=== PATIENT | female | born 2000 | race Two or more races ===

== ENCOUNTER 2021-10-21 08:59 | Inpatient (IN) | payer MEDICAID ==
[~2021-10-21] VITALS: Ht 152.4 cm; Wt 77.6 kg
[2021-10-21] VITALS (15 sets, daily range): BP systolic 98–129; BP diastolic 53–83
[2021-10-21] MEDS ORDERED: ceFAZolin 1GM/50ML 50 ML IV ONE (10:30)
[2021-10-21] MEDS ORDERED: LACTATED RINGER'S 2,000 ML IV ONE (10:45)
[2021-10-21 11:00] LABS: Basophils # (auto) 0 10 ^3/uL (0-0.2); Eosinophils # (auto) 0 10 ^3/uL (0-0.8); Eosinophils % (auto) 0.3 % (0.0-7.0); Monocytes # (auto) 0.4 10 ^3/uL (0-1.3); Monocytes % (auto) 6.5 % (0.0-12.0)
[2021-10-21 11:05] LABS: Basophils % (auto) 0.3 % (0.0-2.0); Hematocrit 32.9 % (36.0-46.0); Hemoglobin 10.9 g/dL (12.2-16.2); Lymphocytes # (auto) 1.4 10 ^3/uL (0.4-5.4); Mean Corpuscular Hemoglobin 26.1 pg (28.0-32.0); Mean Corpuscular Volume 78.9 fL (80.0-100.0); Neutrophils # (auto) 3.6 10 ^3/uL (1.6-8.6); Neutrophils % (auto) 66.9 % (37.0-80.0); Nucleated Red Blood Cells % 0.2 %; Red Blood Cells 4.17 10^6/uL (4.0-5.20); Red Cell Distribution Width 15.9 % (11.8-14.3); White Blood Cell 5.5 10^3/uL (4.4-10.8)
[2021-10-21 11:18] LABS: Albumin 2.4 g/dL (3.4-5.0); BUN/Creatinine Ratio 17.1; Calcium 8.3 mg/dL (8.5-10.1); Potassium 3.8 mmol/L (3.5-5.1)
[2021-10-21 11:21] LABS: Urine Bacteria FEW /hpf (None Seen); Urine Blood Negative /uL (Negative); Urine Mucus FEW (None Seen); Urine Specific Gravity 1.031 (1.001-1.035); Urine WBC 5 /hpf (0 - 5)
[2021-10-21 11:23] LABS: Alcohol, Urine < 3.0 mg/dL (0-10); Amphetamine Screen, Urine NEGATIVE (NEGATIVE); Barbiturate Scree,Urine NEGATIVE (NEGATIVE); Benzodiazephine Screen, Urine NEGATIVE (NEGATIVE); Cannabinoid Screen, Urine NEGATIVE (NEGATIVE); Cocaine Screen, Urine NEGATIVE (NEGATIVE); Opiate Scree,Urine NEGATIVE (NEGATIVE); Phencyclidine Screen, Urine NEGATIVE (NEGATIVE)
[2021-10-21 11:31] LABS: Bilirubin, Total 0.4 mg/dL (0.2-1.0); Total Protein 6.4 g/dL (6.4-8.2)
[2021-10-21 11:35] LABS: INR 0.94 (0.9-1.15); Partial Thromboplastin Time 25.6 sec (23.6-33.0)
[2021-10-21] MEDS ORDERED: fentaNYL CITRATE 100 MCG/2 ML VL ONE (11:58)
[2021-10-21] MEDS ORDERED: MORPHINE SULF PF 5 MG/10 ML VIAL ONE (11:59)
[2021-10-21] MEDS ORDERED: IBUP800T27 PO (13:12)
[2021-10-21] MEDS ORDERED: DOCU-94 PO (13:12)
[2021-10-21] MEDS ORDERED: HYDR-4902 PO (13:12)
[2021-10-21] MEDS ORDERED: ceFAZolin 1GM/50ML 50 ML IV SCH (13:15)
[2021-10-21] MEDS ORDERED: ONDANSETRON HCL 4 MG/2 ML VIAL IV PRN ×2 (13:15→13:45)
[2021-10-21] MEDS ORDERED: LACT. RINGERS/OXYTOCIN 20UNITS 1,000 ML IV ONE (13:15)
[2021-10-21] MEDS ORDERED: HYDROmorphone HCL 2 MG/ML VL/or syr IV PRN (13:45)
[2021-10-21] MEDS ORDERED: NALBUPHINE HCL 10 MG/1ml INJECTION SUBCUT ONE (13:45)
[2021-10-21] MEDS ORDERED: NALOXONE HCL 0.4 MG/ML VIAL IV PRN (13:45)
[2021-10-21] MEDS: LACTATED RINGER'S 1,000 ML IV SCH ×2 (14:59→18:30)
[2021-10-21] MEDS ORDERED: ACETAMINOPHEN IV 1000 MG/100ML (10MG/ML) IV PRN (17:15)
[2021-10-21] MEDS: ceFAZolin 1GM/50ML 50 ML IV SCH (19:54)
[2021-10-21 21:38] LABS: Basophils # (auto) 0 10 ^3/uL (0-0.2); Basophils % (auto) 0.3 % (0.0-2.0); Eosinophils # (auto) 0 10 ^3/uL (0-0.8); Lymphocytes # (auto) 1.5 10 ^3/uL (0.4-5.4); Monocytes # (auto) 0.5 10 ^3/uL (0-1.3); White Blood Cell 9.4 10^3/uL (4.4-10.8)
[2021-10-21 21:39] LABS: Eosinophils % (auto) 0.1 % (0.0-7.0); Lymphocytes % (auto) 16.1 % (10.0-50.0); Mean Corpuscular Hemoglobin 25.4 pg (28.0-32.0); Mean Corpuscular Hgb Conc. 32.4 g/dL (32.0-36.0); Mean Corpuscular Volume 78.2 fL (80.0-100.0); Neutrophils # (auto) 7.3 10 ^3/uL (1.6-8.6); Neutrophils % (auto) 78.5 % (37.0-80.0); Red Blood Cells 4.34 10^6/uL (4.0-5.20)
[2021-10-22] VITALS (15 sets, daily range): BP systolic 102–118; BP diastolic 60–80
[2021-10-22] MEDS: LACTATED RINGER'S 1,000 ML IV SCH ×2 (02:30→10:30)
[2021-10-22] MEDS: ceFAZolin 1GM/50ML 50 ML IV SCH ×2 (03:48→12:04)
[2021-10-22] MEDS ORDERED: BISACODYL 10 MG RECT SUPP PR PRN (06:15)
[2021-10-22] MEDS ORDERED: IBUPROFEN 800 MG TAB PO PRN (06:15)
[2021-10-22] MEDS ORDERED: HYDROcodone-ACET 5/325MG TAB PO PRN (06:15)
[2021-10-22] MEDS: HYDROcodone-ACET 5/325MG TAB PO PRN ×2 (06:52→15:30)
[2021-10-22 08:52] LABS: Basophils # (auto) 0 10 ^3/uL (0-0.2); Eosinophils # (auto) 0 10 ^3/uL (0-0.8); Eosinophils % (auto) 0.1 % (0.0-7.0); Hemoglobin 10.5 g/dL (12.2-16.2); Lymphocytes # (auto) 1.3 10 ^3/uL (0.4-5.4); Mean Corpuscular Hemoglobin 25.6 pg (28.0-32.0); Monocytes # (auto) 0.4 10 ^3/uL (0-1.3); Neutrophils # (auto) 5.9 10 ^3/uL (1.6-8.6); Red Blood Cells 4.11 10^6/uL (4.0-5.20); White Blood Cell 7.7 10^3/uL (4.4-10.8)
[2021-10-22 08:54] LABS: Basophils % (auto) 0.3 % (0.0-2.0); Hematocrit 32.3 % (36.0-46.0); Lymphocytes % (auto) 17.4 % (10.0-50.0); Mean Corpuscular Hgb Conc. 32.6 g/dL (32.0-36.0); Mean Corpuscular Volume 78.4 fL (80.0-100.0); Monocytes % (auto) 5.1 % (0.0-12.0); Neutrophils % (auto) 77.1 % (37.0-80.0); Red Cell Distribution Width 16.2 % (11.8-14.3)
[2021-10-22] MEDS: DOCUSATE SOD 100 MG CAP PO SCH ×2 (10:04→22:14)
[2021-10-22] MEDS: DOCUSATE CALCIUM 240 MG CAP PO SCH (10:04)
[2021-10-22] MEDS: SIMETHICONE 80 MG CHEWABLE TABLET PO SCH ×3 (12:00→22:14)
[2021-10-23 03:30] VITALS: BP 117/70
[2021-10-23] MEDS: SIMETHICONE 80 MG CHEWABLE TABLET PO SCH (05:57)
[2021-10-23 07:15] VITALS: BP 111/76
[2021-10-23] MEDS: DOCUSATE SOD 100 MG CAP PO SCH (09:46)
[2021-10-23] MEDS: DOCUSATE CALCIUM 240 MG CAP PO SCH (09:46)
[2021-10-23 11:20] VITALS: BP 119/76
[2021-10-24 05:06] LABS: RPR Non Reactive (Non Reactive)
== END 2021-10-23 14:21 | disposition home or self-care (01) | DRG 540 ==
LOC: LDRP 08:59 → OBSVTOIN 10:20 → LDRP 10:22
PROVIDERS: ADMIT Obstetrics & Gynecology; ATTEND Obstetrics & Gynecology
PROC: 10D00Z1 Extraction of Products of Conception, Low, Open Approach (ICD-10-PCS; principal; 2021-10-21 12:17)
DX: O32.1XX0 Maternal care for breech presentation, not applicable or unspecified (principal); Z20.822 Contact with and (suspected) exposure to COVID-19; Z37.0 Single live birth; Z3A.38 38 weeks gestation of pregnancy
CPT/HCPCS: 36415; 59025; 76818; 80053; 80307; 81001; 81002; 85025; 85610; 85730; 86592; 86850; 86900; 86901; 94760; 94762; 96360; 96361; 96365; 96366; G0378; J0131; J0690

== ENCOUNTER 2021-12-15 21:40 | Emergency (ER) | payer MEDICAID ==
[~2021-12-15] VITALS: Ht 149.9 cm; Wt 68.2 kg
[~2021-12-15 21:40] MED LIST: DOCU-94 PO; HYDR-4902 PO; IBUP800T27 PO
[2021-12-15 23:48] LABS: Urine Bacteria FEW /hpf (None Seen); Urine Blood Negative /uL (Negative); Urine Mucus FEW (None Seen); Urine Specific Gravity 1.037 (1.001-1.035); Urine WBC 45 /hpf (0 - 5)
[2021-12-16 01:23] VITALS: BP 127/82
[2021-12-16] MEDS ORDERED: CEPHALEXIN 250 MG CAP PO ONE (01:30)
[2021-12-16] MEDS ORDERED: CEPH500T PO (01:33)
== END 2021-12-16 01:41 | disposition home or self-care (01) ==
LOC: ER 21:40
DX: N39.0 Urinary tract infection, site not specified (principal)
CPT/HCPCS: 81001

== ENCOUNTER 2022-04-13 23:24 | Emergency (ER) | payer MEDICAID ==
[~2022-04-13] VITALS: Ht 149.9 cm; Wt 74.0 kg
[~2022-04-13 23:24] MED LIST changes: +CEPH500T PO
[2022-04-14] MEDS ORDERED: ONDANSETRON HCL 4 MG/2 ML VIAL IV ONE (01:00)
[2022-04-14] MEDS ORDERED: SODIUM CHLORIDE 0.9% 500 ML IV ONE (01:00)
[2022-04-14 01:35] LABS: Basophils # (auto) 0.2 10 ^3/uL (0-0.2); Basophils % (auto) 1.9 % (0.0-2.0); Eosinophils # (auto) 0.1 10 ^3/uL (0-0.8); Hemoglobin 13.1 g/dL (12.2-16.2); Lymphocytes # (auto) 1.4 10 ^3/uL (0.4-5.4); Lymphocytes % (auto) 16.9 % (10.0-50.0); Mean Corpuscular Hemoglobin 28.6 pg (28.0-32.0); Mean Corpuscular Hgb Conc. 34.4 g/dL (32.0-36.0); Mean Corpuscular Volume 83.1 fL (80.0-100.0); Monocytes # (auto) 0.5 10 ^3/uL (0-1.3); Monocytes % (auto) 5.7 % (0.0-12.0); Neutrophils # (auto) 6.2 10 ^3/uL (1.6-8.6); Neutrophils % (auto) 74.5 % (37.0-80.0); Nucleated Red Blood Cells % 0.1 %; Red Blood Cells 4.58 10^6/uL (4.0-5.20); Red Cell Distribution Width 14.3 % (11.8-14.3); White Blood Cell 8.3 10^3/uL (4.4-10.8)
[2022-04-14 01:48] LABS: Albumin 3.7 g/dL (3.4-5.0); Calcium 8.8 mg/dL (8.5-10.1); Potassium 3.6 mmol/L (3.5-5.1)
[2022-04-14 01:51] LABS: Bilirubin, Total 0.4 mg/dL (0.2-1.0); Total Protein 7.6 g/dL (6.4-8.2)
[2022-04-14 01:52] LABS: INR 0.97 (0.9-1.15); Partial Thromboplastin Time 29.7 sec (24.6-33.4)
[2022-04-14 02:50] LABS: Urine WBC None Seen /hpf (0 - 5)
[2022-04-14 03:06] LABS: Urine Amorphous Crystal MOD /hpf (None Seen); Urine Bacteria NONE SEEN /hpf (None Seen); Urine Blood Negative /uL (Negative); Urine Mucus FEW (None Seen); Urine Specific Gravity 1.036 (1.001-1.035)
[2022-04-14 04:18] VITALS: BP 111/77
== END 2022-04-14 04:21 | disposition home or self-care (01) ==
LOC: ER 23:24
DX: N94.6 Dysmenorrhea, unspecified (principal); N92.6 Irregular menstruation, unspecified; Z79.899 Other long term (current) drug therapy
CPT/HCPCS: 36415; 76705; 76856; 80053; 81001; 81025; 83690; 84702; 85025; 85610; 85730

== ENCOUNTER 2022-12-14 20:32 | Emergency (ER) | payer MEDICAID ==
[~2022-12-14] VITALS: Ht 149.9 cm; Wt 76.3 kg
[~2022-12-14 20:32] MED LIST changes: +IBUP-1456 PO; -IBUP800T27 PO
[2022-12-14 22:21] LABS: Basophils # (auto) 0 10 ^3/uL (0-0.2); Basophils % (auto) 0.1 % (0.0-2.0); Eosinophils # (auto) 0 10 ^3/uL (0-0.8); Eosinophils % (auto) 0.2 % (0.0-7.0); Hematocrit 39.1 % (36.0-46.0); Hemoglobin 13.3 g/dL (12.2-16.2); Lymphocytes # (auto) 1.1 10 ^3/uL (0.4-5.4); Mean Corpuscular Hemoglobin 28.1 pg (28.0-32.0); Mean Corpuscular Hgb Conc. 33.9 g/dL (32.0-36.0); Mean Corpuscular Volume 82.9 fL (80.0-100.0); Monocytes # (auto) 0.3 10 ^3/uL (0-1.3); Monocytes % (auto) 3.1 % (0.0-12.0); Neutrophils # (auto) 9.7 10 ^3/uL (1.6-8.6); Neutrophils % (auto) 86.6 % (37.0-80.0); Red Blood Cells 4.72 10^6/uL (4.0-5.20); Red Cell Distribution Width 14.3 % (11.8-14.3); White Blood Cell 11.2 10^3/uL (4.4-10.8)
[2022-12-14 22:51] LABS: Alanine Aminotransferase 45 U/L (7-40); Albumin 4.6 g/dL (3.2-4.8); Alkaline Phosphatase 114 U/L (46-116); Anion Gap 6.4 (5-15); Aspartate Aminotransferase 32 U/L (13-40); BUN/Creatinine Ratio 18.9 (10.0-20.0); Bilirubin, Total 0.6 mg/dL (0.2-1.0); Blood Urea Nitrogen 10 mg/dL (9-23); Carbon Dioxide 25.6 mmol/L (20-30); Chloride 104 mmol/L (98-107); Glucose 107 mg/dL (74-106); Lipase 40 U/L (12-53); Potassium 3.3 mmol/L (3.5-5.1); Sodium 136 mmol/L (136-145); Total Protein 7.7 g/dL (5.7-8.2)
[2022-12-15 00:19] LABS: Urine Bacteria NONE SEEN /hpf (None Seen); Urine Blood Negative /uL (Negative); Urine Clarity Clear (Clear); Urine Color Yellow (Yellow); Urine Mucus FEW (None Seen); Urine Protein, UAD TRACE (Negative); Urine Specific Gravity 1.034 (1.001-1.035); Urine Urobilinogen Normal (Negative); Urine WBC 1 /hpf (0 - 5); Urine pH 5.5 (5.0-8.0)
[2022-12-15] MEDS ORDERED: ZOFR4T PO (00:39)
[2022-12-15] MEDS ORDERED: DICY10CA PO (00:39)
[2022-12-15] MEDS ORDERED: ONDANSETRON ODT 4 MG TAB PO ONE (00:45)
[2022-12-15] MEDS ORDERED: HYDROcodone-ACET 5/325MG TAB PO ONE (00:45)
[2022-12-15 01:28] VITALS: BP 120/76; PULSE 109; RESP 20; TEMP 99.4
[2022-12-15 01:32] VITALS: O2SAT 98
== END 2022-12-15 01:36 | disposition home or self-care (01) ==
LOC: ER 20:32
DX: K52.9 Noninfective gastroenteritis and colitis, unspecified (principal); N83.202 Unspecified ovarian cyst, left side; Z90.49 Acquired absence of other specified parts of digestive tract; Z98.890 Other specified postprocedural states; Z79.1 Long term (current) use of non-steroidal anti-inflammatories (NSAID); Z79.899 Other long term (current) drug therapy
CPT/HCPCS: 36415; 74176; 80053; 81001; 81025; 83690; 85025; 99284; Q0162